=== PATIENT | female | born 1955 | race Caucasian/White ===

== ENCOUNTER 2018-06-17 15:53 | Emergency (ER) | payer OTHER ==
[~2018-06-17] VITALS: Ht 167.6 cm; Wt 124.7 kg
[~2018-06-17 15:53] MED LIST: AZOR 5-40 MG T1 EACH PO; CARISOPRODOL 3350 MG; CELEXA 20 MG TA20 M1; COLACE 100 MG100 MG PO; CYMBALTA PO; CYMBALTA30 MG PO; HYDROCHLOROTH12.5 M1 PO; HYDROCHLOROTH12.5 MG; K-TAB10 MEQ PO; MILK OF MA2400 MG/10 PO; MIRALAX17 GM PO; MOBIC15 MG PO; PERCOCET 5-3251 EACH; PERCOCET 5-3251 EACH PO; PERCOCET 7.5-31 EACH PO; PREDNISONE 10 M10 M1 PO; PROTONIX40 M1 PO; TYLENOL325 MG PO; VICODIN 5-5001 EACH PO; XANAX 0.5 MG0.5 M1 PO; ZOCOR 20 MG TAB20 M1; [UNRECOGNIZED DRUG - REMARK]
[2018-06-17] MEDS ORDERED: COZAAR 25 MG TA25 M1 PO (16:08)
[2018-06-17] MEDS ORDERED: PRILOSEC 10MG C10 MG PO (16:08)
[2018-06-17] MEDS ORDERED: ALLOPURINOL 10100 M1 PO (16:08)
[2018-06-17] MEDS ORDERED: FISH OIL 1,001000 M2 PO (16:08)
[2018-06-17] MEDS ORDERED: LOPRESSOR50 PO (16:08)
[2018-06-17] MEDS ORDERED: NAPROSYN500 MG PO (16:09)
[2018-06-17] MEDS ORDERED: XANAX 0.25 MG0.25 MG PO (16:09)
[2018-06-17] MEDS ORDERED: CARISOPRODOL 3350 MG PO (16:09)
[2018-06-17 17:25] VITALS: BP 117/80
== END 2018-06-17 17:25 | disposition home or self-care (01) ==
LOC: M.ERS 15:53
DX: S93.492A Sprain of other ligament of left ankle, initial encounter (principal); M79.7 Fibromyalgia; I10 Essential (primary) hypertension; F32.9 Major depressive disorder, single episode, unspecified; M19.90 Unspecified osteoarthritis, unspecified site; G47.30 Sleep apnea, unspecified; F17.210 Nicotine dependence, cigarettes, uncomplicated; Z88.5 Allergy status to narcotic agent; Z88.0 Allergy status to penicillin; Z88.2 Allergy status to sulfonamides; Z91.040 Latex allergy status; Z88.8 Allergy status to other drugs, medicaments and biological substances; Z90.710 Acquired absence of both cervix and uterus; Z98.890 Other specified postprocedural states; Z85.828 Personal history of other malignant neoplasm of skin; W18.39XA Other fall on same level, initial encounter; Y93.89 Activity, other specified; Y92.89 Other specified places as the place of occurrence of the external cause; Y99.8 Other external cause status